=== PATIENT | male | born 1940 | race Caucasian/White ===

== ENCOUNTER 2018-02-24 15:09 | Inpatient (IN) | payer MEDICARE, BC ==
[2018-02-24] MEDS ORDERED: CONTRAST GIVEN. MC (16:15)
[2018-02-24 16:18] LABS: ADD MAN DIFF? NO
[2018-02-24] MEDS: IV NORMAL SALINE 1000ML BAG 1,000 ML IV ×2 (16:22→18:46)
[2018-02-24 16:25] LABS: BASO # 0.1 x10^3/uL (0.0-0.2); BASO % 1 % (0-3); EOS # 0.1 x10^3/uL (0.0-0.7); EOS % 1 % (0-3); HEMATOCRIT 32.3 % (39.0-53.0); LYMPH # 2.7 x10^3/uL (1.0-4.8); LYMPH % 29 % (24-48); MEAN CORPUSCULAR HEMOGLOBIN 32 pg (25-35); MEAN CORPUSCULAR HGB CONC 34 g/dL (31-37); MEAN CORPUSCULAR VOLUME 94 fL (79-100); MONO # 0.9 x10^3/uL (0.0-1.1); MONO % 9 % (0-9); NEUT # 5.6 x10^3uL (1.8-7.7); NEUT % 60 % (31-73); PLATELET COUNT 237 x10^3/uL (140-400); RED BLOOD COUNT 3.42 x10^6/uL (4.30-5.70); RED CELL DISTRIBUTION WIDTH 14.9 % (11.5-14.5); WHITE BLOOD COUNT 9.3 x10^3/uL (4.0-11.0)
[2018-02-24] MEDS: PANTOPRAZOLE IV PUSH 40 MG VIAL. IVP (16:25)
[2018-02-24] MEDS: ONDANSETRON PF 4 MG/2 ML VIAL. IV (16:25)
[2018-02-24] MEDS: IOHEXOL 300 MG/ML 100ML VIAL. IV (16:30)
[2018-02-24 16:32] LABS: ANION GAP 7 (6-14); BLOOD UREA NITROGEN 17 mg/dL (8-26); BUN/CREATININE RATIO 13 (6-20); CALCIUM 8.4 mg/dL (8.5-10.1); CARBON DIOXIDE 28 mmol/L (21-32); CHLORIDE 104 mmol/L (98-107); CREATININE 1.3 mg/dL (0.7-1.3); GFR 53.5; GLUCOSE 113 mg/dL (70-99); POTASSIUM 3.9 mmol/L (3.5-5.1); SODIUM 139 mmol/L (136-145)
[2018-02-24 16:35] LABS: ETHANOL < 10 mg/dL (0-10)
[2018-02-24 16:39] LABS: ALBUMIN 3.4 g/dL (3.4-5.0); ALBUMIN/GLOBULIN RATIO 1.1 (1.0-1.7); ALK PHOS 69 U/L (46-116); ALT (SGPT) 16 U/L (16-63); AST (SGOT) 13 U/L (15-37); LIPASE 148 U/L (73-393); TOTAL BILIRUBIN 0.3 mg/dL (0.2-1.0); TOTAL PROTEIN 6.4 g/dL (6.4-8.2)
[2018-02-24 16:43] LABS: AMPHETAMINE/METHAMPHETAMINE NEG (NEG); BARBITURATES NEG (NEG); BENZODIAZEPINES POS (NEG); CANNABINOIDS NEG (NEG); COCAINE NEG (NEG); METHADONE NEG (NEG); OPIATES POS (NEG); PHENCYCLIDINE NEG (NEG)
[2018-02-24 16:44] LABS: ETHANOL, URINE NEG (NEG)
[2018-02-24 16:48] LABS: BILIRUBIN,URINE NEGATIVE (NEG); CLARITY,URINE CLEAR; COLOR,URINE YELLOW; GLUCOSE,URINE NEGATIVE (NEG); NITRITE,URINE NEGATIVE (NEG); PH,URINE 5.5; PROTEIN,URINE NEGATIVE (NEG-TRACE)
[2018-02-24 17:26] LABS: BACTERIA,URINE 0 /HPF (0-FEW)
[2018-02-24 17:27] LABS: HYALINE CASTS, URINE MODERATE /HPF
[2018-02-24] MEDS: IV 1/2 NORMAL SALINE 1,000 ML IV (17:51)
[2018-02-24] MEDS ORDERED: PROCHLORPERAZINE 25 MG SUPP.RECT. PR (18:00)
[2018-02-24] MEDS ORDERED: LABETALOL 20 MG/4 ML DISP.SYRIN. IVP (18:00)
[2018-02-24] MEDS ORDERED: ONDANSETRON PF 4 MG/2 ML VIAL. IV ×2 (18:00→18:15)
[2018-02-24] MEDS ORDERED: PROCHLORPERAZINE 10 MG/2 ML VIAL. IV (18:00)
[2018-02-24] MEDS ORDERED: MORPHINE SULFATE 2 MG/ML DISP.SYRIN. IV (18:00)
[2018-02-24] MEDS ORDERED: MAGNESIUM HYDROXIDE 2,400 MG/30 ML ORAL.SUSP. PO (18:00)
[2018-02-24] MEDS ORDERED: CALCIUM CARBONATE 500 MG TAB.CHEW PO (18:00)
[2018-02-24] MEDS ORDERED: ACETAMINOPHEN 325 MG TABLET. PO (18:00)
[2018-02-24] MEDS ORDERED: BISACODYL 10 MG SUPP.RECT. PR (18:00)
[2018-02-24 18:24] LABS: PROTHROMBIN TIME PATIENT 12.3 SEC (11.7-14.0)
[2018-02-24] MEDS: MORPHINE SULFATE 4 MG/ML DISP.SYRIN. IV (18:47)
[2018-02-24 20:30] LABS: HEMOGLOBIN 11.4 g/dL (13.0-17.5)
[2018-02-24 20:30] LABS: HEMATOCRIT 32.8 % (39.0-53.0)
[2018-02-24] MEDS: PANTOPRAZOLE SODIUM IV DRIP 80 MG in IV NORMAL SALINE 100ML 100 ML IV (20:56)
[2018-02-24] MEDS: TEMAZEPAM 7.5 MG CAPSULE PO (21:11)
[2018-02-24] MEDS: oxyCODONE IR 5 MG TABLET PO (21:12)
[2018-02-25 04:50] LABS: ADD MAN DIFF? NO
[2018-02-25 05:21] LABS: BASO % 1 % (0-3); EOS # 0.1 x10^3/uL (0.0-0.7); EOS % 1 % (0-3); HEMATOCRIT 30.4 % (39.0-53.0); HEMOGLOBIN 10.5 g/dL (13.0-17.5); LYMPH # 2.7 x10^3/uL (1.0-4.8); LYMPH % 35 % (24-48); MEAN CORPUSCULAR HEMOGLOBIN 33 pg (25-35); MEAN CORPUSCULAR HGB CONC 35 g/dL (31-37); MEAN CORPUSCULAR VOLUME 96 fL (79-100); MONO # 0.7 x10^3/uL (0.0-1.1); MONO % 9 % (0-9); NEUT # 4.2 x10^3uL (1.8-7.7); NEUT % 54 % (31-73); PLATELET COUNT 213 x10^3/uL (140-400); RED BLOOD COUNT 3.17 x10^6/uL (4.30-5.70); RED CELL DISTRIBUTION WIDTH 15.5 % (11.5-14.5); WHITE BLOOD COUNT 7.7 x10^3/uL (4.0-11.0)
[2018-02-25 05:32] LABS: ANION GAP 8 (6-14); BLOOD UREA NITROGEN 14 mg/dL (8-26); CALCIUM 8.2 mg/dL (8.5-10.1); CARBON DIOXIDE 25 mmol/L (21-32); CHLORIDE 108 mmol/L (98-107); CREATININE 1.1 mg/dL (0.7-1.3); GFR 64.9; GLUCOSE 94 mg/dL (70-99); POTASSIUM 4.2 mmol/L (3.5-5.1); SODIUM 141 mmol/L (136-145)
[2018-02-25] MEDS: PANTOPRAZOLE SODIUM IV DRIP 80 MG in IV NORMAL SALINE 100ML 100 ML IV (06:19)
[2018-02-25] MEDS: IV 1/2 NORMAL SALINE 1,000 ML IV ×2 (06:19→14:54)
[2018-02-25] MEDS: IV RINGERS,LACTATED 1000ML 1,000 ML IV ×2 (07:23→15:20)
[2018-02-25] MEDS ORDERED: fentaNYL PF VIAL 100 MCG/2 ML VIAL IV ×2 (07:30)
[2018-02-25] MEDS ORDERED: PANTOPRAZOLE IV PUSH 40 MG VIAL. IVP (07:30)
[2018-02-25] MEDS ORDERED: MIDAZOLAM HCL/PF 2 MG/2 ML VIAL. IV (07:30)
[2018-02-25] MEDS ORDERED: LIDOCAINE 1% PF 2 ML VIAL. ID (07:30)
[2018-02-25] MEDS ORDERED: PROPOFOL 20 ML IV (07:43)
[2018-02-25] MEDS ORDERED: LIDO:MAALOX 1:1 20 ML SINGLE DOSE. PO (09:00)
[2018-02-25] MEDS: MORPHINE SULFATE 4 MG/ML DISP.SYRIN. IV ×2 (11:48→14:55)
[2018-02-25] MEDS ORDERED: oxyCODONE IR 5 MG TABLET PO (13:30)
[2018-02-25] MEDS: DULoxetine HCL 30 MG CAPSULE.DR PO (14:51)
[2018-02-25] MEDS: TAMSULOSIN 0.4 MG CAP.ER.24H. PO (14:52)
[2018-02-25] MEDS: QUEtiapine 25 MG TABLET. PO ×2 (14:52→20:52)
[2018-02-25] MEDS: CLOPIDOGREL BISULFATE 75 MG TABLET PO (14:52)
[2018-02-25] MEDS: CYANOCOBALAMIN (VITAMIN B-12) 1,000 MCG TABLET. PO (14:52)
[2018-02-25] MEDS: clonazePAM 1 MG TABLET PO ×2 (14:52→20:51)
[2018-02-25] MEDS: CARVEDILOL 6.25 MG TABLET. PO (14:53)
[2018-02-25] MEDS: METOPROLOL SUCC 24HR ER 25 MG TAB.ER.24H. PO (14:53)
[2018-02-25] MEDS: TIMOLOL 0.5% OPHTH SOLUTION 5ML BOTTLE. OS ×2 (14:54→20:53)
[2018-02-25] MEDS: DORZOLAMIDE 2% OPHTH SOLUTION 10ML BOTTLE. OU ×2 (14:54→20:53)
[2018-02-25] MEDS: BRIMONIDINE 0.2% OPHTH SOLUTION 5ML BOTTLE. OS ×2 (14:54→20:53)
[2018-02-25] MEDS: PANTOPRAZOLE 40 MG TABLET.DR. PO (17:26)
[2018-02-25] MEDS: OLANZapine 2.5 MG TABLET PO (20:51)
[2018-02-25] MEDS: MULTIVITAMIN I-VITE TABLET. PO (20:51)
[2018-02-25] MEDS: ATORVASTATIN CALCIUM 40 MG TABLET. PO (20:51)
[2018-02-25] MEDS: LATANOPROST 0.005% OPHTH SOLUTION 2.5ML BOTTLE. OU (21:28)
[2018-02-26] MEDS: IV 1/2 NORMAL SALINE 1,000 ML IV ×2 (01:03→10:10)
[2018-02-26] MEDS: TAMSULOSIN 0.4 MG CAP.ER.24H. PO (10:06)
[2018-02-26] MEDS: QUEtiapine 25 MG TABLET. PO (10:06)
[2018-02-26] MEDS: MULTIVITAMIN I-VITE TABLET. PO (10:06)
[2018-02-26] MEDS: PANTOPRAZOLE 40 MG TABLET.DR. PO (10:06)
[2018-02-26] MEDS: CYANOCOBALAMIN (VITAMIN B-12) 1,000 MCG TABLET. PO (10:06)
[2018-02-26] MEDS: DULoxetine HCL 30 MG CAPSULE.DR PO (10:07)
[2018-02-26] MEDS: CARVEDILOL 6.25 MG TABLET. PO (10:07)
[2018-02-26] MEDS: CLOPIDOGREL BISULFATE 75 MG TABLET PO (10:07)
[2018-02-26] MEDS: clonazePAM 1 MG TABLET PO (10:07)
[2018-02-26] MEDS: TIMOLOL 0.5% OPHTH SOLUTION 5ML BOTTLE. OS (10:08)
[2018-02-26] MEDS: METOPROLOL SUCC 24HR ER 25 MG TAB.ER.24H. PO (10:08)
[2018-02-26] MEDS: DORZOLAMIDE 2% OPHTH SOLUTION 10ML BOTTLE. OU (10:09)
[2018-02-26] MEDS: BRIMONIDINE 0.2% OPHTH SOLUTION 5ML BOTTLE. OS (10:09)
[2018-02-26 11:38] LABS: HEMATOCRIT 33.4 % (39.0-53.0); HEMOGLOBIN 11.7 g/dL (13.0-17.5); MEAN CORPUSCULAR HEMOGLOBIN 33 pg (25-35); MEAN CORPUSCULAR HGB CONC 35 g/dL (31-37); MEAN CORPUSCULAR VOLUME 95 fL (79-100); PLATELET COUNT 242 x10^3/uL (140-400); RED BLOOD COUNT 3.53 x10^6/uL (4.30-5.70); RED CELL DISTRIBUTION WIDTH 14.9 % (11.5-14.5); WHITE BLOOD COUNT 9.2 x10^3/uL (4.0-11.0)
[2018-02-26 12:11] LABS: ALBUMIN 3.4 g/dL (3.4-5.0); ALK PHOS 62 U/L (46-116); ALT (SGPT) 15 U/L (16-63); ANION GAP 9 (6-14); AST (SGOT) 14 U/L (15-37); BLOOD UREA NITROGEN 9 mg/dL (8-26); BUN/CREATININE RATIO 9 (6-20); CALCIUM 8.7 mg/dL (8.5-10.1); CARBON DIOXIDE 24 mmol/L (21-32); CHLORIDE 108 mmol/L (98-107); GFR 72.5; GLUCOSE 107 mg/dL (70-99); POTASSIUM 3.9 mmol/L (3.5-5.1); SODIUM 141 mmol/L (136-145); TOTAL BILIRUBIN 0.7 mg/dL (0.2-1.0); TOTAL PROTEIN 6.9 g/dL (6.4-8.2)
== END 2018-02-26 13:00 | disposition home or self-care (01) | DRG 378 ==
LOC: ER 15:09 → 5 SOUTH 17:35
PROC: 0DB38ZX Excision of Lower Esophagus, Via Natural or Artificial Opening Endoscopic, Diagnostic (ICD-10-PCS; principal; 2018-02-25 08:00)
PROC: 0DB78ZX Excision of Stomach, Pylorus, Via Natural or Artificial Opening Endoscopic, Diagnostic (ICD-10-PCS; 2018-02-25 08:00)
DX: K29.61 Other gastritis with bleeding (principal); D62 Acute posthemorrhagic anemia; K29.81 Duodenitis with bleeding; D64.9 Anemia, unspecified; K22.70 Barrett's esophagus without dysplasia; K20.9 Esophagitis, unspecified; M79.7 Fibromyalgia; I25.10 Atherosclerotic heart disease of native coronary artery without angina pectoris; I10 Essential (primary) hypertension; Z82.49 Family history of ischemic heart disease and other diseases of the circulatory system; Z88.2 Allergy status to sulfonamides; Z88.8 Allergy status to other drugs, medicaments and biological substances; Z95.5 Presence of coronary angioplasty implant and graft; Z91.81 History of falling; Q40.2 Other specified congenital malformations of stomach
CPT/HCPCS: 36415; 80048; 80053; 80307; 81001; 83690; 85014; 85018; 85025; 85027; 85610; 86850; 86900; 86901; 87086; 88305; 88342; 93005; 96374; 96375; 97110-GP; 97116-GP; 97162-GP; 97165-GO; 99285; 99285-25; C9113; G0480; G8978-CJ-GP; G8979-CI-GP; J2270; J2405; J2704; J7030; J7120